=== PATIENT | female | born 1975 | race African-American/Black ===

== ENCOUNTER 2019-04-29 07:28 | Emergency (ER) | payer OTHER ==
[2019-04-29 07:37] VITALS: BP 115/70; PULSE 83; TEMP 98.5; BMI 40.3
[2019-04-29] MEDS ORDERED: AZITHROMYCIN 500 MG TABLET PO ONE (09:27)
--- NOTE | 2019-04-29 09:27 | PDOC ---
History of Present Illness - General Chief Complaint: Urinary Problem Stated Complaint: URINARY PROBLEM Time Seen by Provider: 04/29/19 07:46 History Source: Patient Exam Limitations: No Limitations Past History - Travel Traveled outside of the country in the last 30 days: No Close contact w/someone who was outside of country & ill: No - Past Medical History Allergies/Adverse Reactions: Allergies Allergy/AdvReac Type Severity Reaction Status Date / Time No Known Allergies Allergy Verified 04/29/19 07:32 - Psycho Social/Smoking Cessation Hx Smoking History: Current every day smoker Number of Cigarettes Smoked Daily: 10 Information on smoking cessation initiated: No Hx Alcohol Use: No Drug/Substance Use Hx: No Review of Systems - Review of Systems Able to Perform ROS?: Yes Comments:: 04/29/19 08:20 CONSTITUTIONAL: Absent: fever, chills, diaphoresis, generalized weakness, malaise, loss of appetite HEENT: Absent: rhinorrhea, nasal congestion, throat pain, throat swelling, difficulty swallowing, mouth swelling, ear pain, eye pain, visual Changes CARDIOVASCULAR: Absent: chest pain, loss of consciousness, palpitations, irregular heart rate, peripheral edema RESPIRATORY: Absent: cough, shortness of breath, dyspnea with exertion, orthopnea, wheezing, stridor, hemoptysis GASTROINTESTINAL: Absent: abdominal pain, abdominal distension, nausea, vomiting, diarrhea, constipation, melena, hematochezia GENITOURINARY: Present: dysuira Absent: dysuria, frequency, urgency, hesitancy, hematuria, flank pain, genital pain MUSCULOSKELETAL: Absent: myalgia, arthralgia, joint swelling SKIN: Present: boil Absent: rash, itching, pallor HEMATOLOGIC/IMMUNOLOGIC: Absent: easy bleeding, easy bruising, lymphadenopathy, frequent infections ENDOCRINE: Absent: unexplained weight gain, unexplained weight loss, heat intolerance, cold intolerance NEUROLOGIC: Absent: headache, focal weakness or paresthesias, dizziness, unsteady gait, seizure, mental status changes, bladder or bowel incontinence PSYCHIATRIC: Absent: anxiety, depression, suicidal or homicidal ideation, hallucinations. Is the patient limited Citizen [place] proficient: No *Physical Exam - Vital Signs Last Vital Signs Temp Pulse Resp BP Pulse Ox 98.5 F 83 16 115/70 7 L 04/29/19 07:33 04/29/19 07:33 04/29/19 07:33 04/29/19 07:33 04/29/19 07:33 - Physical Exam 04/29/19 11:02 GENERAL: Well developed, well nourished. Awake and alert. No acute distress. HEENT: Normocephalic, atraumatic. PERRLA, EOMI. No conjunctival pallor. Sclera are non- icteric. Moist mucous membranes. Oropharynx is clear. NECK: Supple. Full ROM. No lymphadenopathy. ABDOMINAL: Discomfort to the suprapubic region. Soft. Non-tender. Non-distended. No rebound or guarding. No organomegaly. Normoactive bowel sounds. MUSCULOSKELETAL Normal range of motion at all joints. No bony deformities or tenderness. No CVA tenderness. EXTREMITIES: No cyanosis. No clubbing. No edema. No calf tenderness. SKIN: Cellulitic draining boil to the L inner thigh. No overlying erythema. Warm and dry. Normal capillary refill. No rashes. No jaundice. NEUROLOGICAL: Alert, awake, appropriate. Cranial nerves 2-12 intact. No deficits to light touch and temperature in face, upper extremities and lower extremities. No motor deficits in the in face, upper extremities and lower extremities. Normoreflexic in the upper and lower extremities. Normal speech. Toes are down-going bilaterally. Gait is normal without ataxia. PSYCHIATRIC: Cooperative. Good eye contact. Appropriate mood and affect. Medical Decision Making - Medical Decision Making 04/29/19 09:31 The patient is a 43-year-old female with no past medical history who presents to the ER with dysuria for 2 weeks, a boil to the inside of her leg, and bumps to her bumps in her bikini line. She notes that she been sexually active with a new partner in January where they had unprotected sex. She is also concerned for STDs at this time. Denies fevers, chills, abdominal pain nausea and vomiting. Denies sick contacts. A/P: Dysuria On exam patient with mild suprapubic discomfort. Patient with shaving associated folliculitis in the bikini line region. Cellulitic area noted to the right inner thigh consistent with an ingrown hair. Would treat with antibiotics. Patient requesting STD testing, states that she does not want a wait for the HIV test and will return tomorrow for her results. Explained to the patient that I cannot give her her HIV results over the phone as we cannot prove who she is. Patient states that she will wait for urine results. 04/29/19 11:35 While waiting for urine results, patient eloped from the emergency department. Was unable to confirm her pharmacy. Cannot send Bactrim and Keflex for the cellulitis as previously planned. Urine is negative. Discharge - Discharge Information Problems reviewed: Yes Clinical Impression/Diagnosis: Dysuria, Screen for STD (sexually transmitted disease) Condition: Stable Disposition: ELOPED - Admission No - Follow up/Referral Referrals: Mykel Arauz MD [Staff Physician] - - Patient Discharge Instructions Patient Printed Discharge Instructions: DI for Dysuria -- Adult - Post Discharge Activity
[2019-04-29 09:47] LABS: PH,URINE 7.5 (5.0-8.0); URINE APPEARANCE CLEAR; URINE BILIRUBIN NEGATIVE (NEGATIVE); URINE COLOR YELLOW; URINE GLUCOSE (UA) NEGATIVE (NEGATIVE); URINE KETONE NEGATIVE (NEGATIVE); URINE LEUK ESTERASE NEGATIVE (NEGATIVE); URINE NITRITE NEGATIVE (NEGATIVE); URINE PROTEIN NEGATIVE (NEGATIVE); URINE UROBILINOGEN 0.2 mg/dL (0.2-1.0)
== END 2019-04-29 10:30 | disposition left against medical advice (07) ==
LOC: JER 07:28
DX: L03.115 Cellulitis of right lower limb (principal); L73.8 Other specified follicular disorders; R30.0 Dysuria
CPT/HCPCS: 36415; 81003; 84703; 86593; 87086; 87186; 87389; 87491; 87591; 99284-25